=== PATIENT | male | born 1990 | race Caucasian/White ===

== ENCOUNTER 2017-05-18 11:30 | Emergency (ER) | payer SELFPAY ==
[2017-05-18] MEDS ORDERED: Bupivacaine 0.25% MDV* 50 ML VIAL ONE (11:45)
[2017-05-18 12:13] LABS: Hematocrit 43 % (42-52); Hemoglobin 14.4 g/dl (14.0-18.0); Mean Corpuscular HGB Conc 33 g/dl (31-36); Mean Corpuscular Hemoglobin 32 pg (27-31); Mean Corpuscular Volume 95 fL (80-94); Mean Platelet Volume 8 um3 (7.4-10.4); Red Blood Count 4.55 10^6/ul (4.0-5.4); Red Cell Distribution Width 13 % (10.5-15); White Blood Count 5.7 10^3/ul (3.5-10.8)
[2017-05-18 12:27] LABS: Albumin 4.9 g/dL (3.2-5.2); BUN/Creatinine Ratio 12.4 (8-20); EGFR African American 121.3 (>60); EGFR Non-African American 94.3 (>60); Globulin 2.8 g/dL (2-4); Potassium 3.9 mmol/L (3.5-5.0); Total Bilirubin 0.9 mg/dL (0.2-1.0); Total Protein 7.7 g/dL (6.4-8.9)
--- NOTE | 2017-05-18 13:12 | RAD ---
HISTORY: Left second digit trauma COMPARISONS: None VIEWS: 3, Frontal, lateral, and oblique views of the second digit of the left hand FINDINGS: BONE DENSITY: Normal. BONES: There is a 0.3 x 1 cm defect of the head of the proximal phalanx of the second digit with articular extension. JOINTS: There is no arthropathy. ALIGNMENT: There is no dislocation. SOFT TISSUES: There is soft tissue regularly consistent with history of trauma OTHER FINDINGS: None. IMPRESSION: OSSEOUS DEFECT OF THE HEAD OF THE PROXIMAL PHALANX OF THE SECOND DIGIT CONSISTENT WITH THE HISTORY OF PENETRATING TRAUMA
[2017-05-18 14:40] VITALS: BP 127/75
--- NOTE | 2017-05-18 16:35 | ED ---
Neri Rubin Nikita, scribed for Renny Pyle MD on 05/18/17 at 1140 . Laceration/Wound HPI - HPI Summary HPI Summary: Pt is a 26 y/o M who presents to ED c/o L index laceration. At approximately 1120 this morning, he cut the finger with a table saw. Reports he is unable to move the index finger, but can move all of the others. Applied a towel [employer]. Associated pain is severe, ranked 10/10. Sx aggravated and alleviated by nothing. Confirms his last tetanus shot was less than 5 years ago. - History of Current Complaint Stated Complaint: FINGER LAC Time Seen by Provider: 05/18/17 11:34 Hx Obtained From: Patient Mechanism of Injury: Sharp/Blunt Trauma - Table saw Aggravating: Nothing Alleviating: Nothing Current Severity: Severe Pain Intensity: 10 Pain Scale Used: 0-10 Numeric Associated Signs & Symptoms: Negative - Allergy/Home Medications Allergies/Adverse Reactions: Allergies Allergy/AdvReac Type Severity Reaction Status Date / Time No Known Allergies Allergy Verified 05/18/17 11:31 PMH/Surg Hx/FS Hx/Imm Hx Previously Healthy: Yes Endocrine/Hematology History: Denies: Hx Diabetes Cardiovascular History: Denies: Hx Coronary Artery Disease, Hx Hypertension Infectious Disease History: No Infectious Disease History: Denies: Traveled Outside the [place] in Last 30 Days - Family History Known Family History: Positive: Hypertension - Grandmother - Social History Alcohol Use: None Substance Use Type: Reports: None Smoking Status (MU): Never Smoked Tobacco Review of Systems Negative: Fever Positive: Other - L index finger laceration All Other Systems Reviewed And Are Negative: Yes Physical Exam Triage Information Reviewed: Yes Vital Signs On Initial Exam: Initial Vitals Temp Pulse Resp BP Pulse Ox 96 F 81 16 130/70 100 05/18/17 11:31 05/18/17 11:31 05/18/17 11:31 05/18/17 11:31 05/18/17 11:31 Vital Signs Reviewed: Yes Appearance: Positive: Well-Appearing, No Pain Distress Skin: Positive: Warm, Skin Color Reflects Adequate Perfusion, Dry Head/Face: Positive: Normal Head/Face Inspection Eyes: Positive: Normal ENT: Positive: Normal ENT inspection Neck: Positive: Supple, Nontender Respiratory/Lung Sounds: Positive: Clear to Auscultation, Breath Sounds Present Cardiovascular: Positive: RRR Abdomen Description: Positive: Nontender, Soft Bowel Sounds: Positive: Present Musculoskeletal: Positive: Other - Index finger has a laceration on the dorsum of the PIP, into the joint Psychiatric: Positive: Normal Diagnostics - Vital Signs Vital Signs Temp Pulse Resp BP Pulse Ox 05/18/17 11:31 96 F 81 16 130/70 100 - Laboratory Lab Results: Lab Results 05/18/17 05/18/17 Range/Units 12:02 12:02 WBC 5.7 (3.5-10.8) 10^3/ul RBC 4.55 (4.0-5.4) 10^6/ul Hgb 14.4 (14.0-18.0) g/dl Hct 43 (42-52) % MCV 95 H (80-94) fL MCH 32 H (27-31) pg MCHC 33 (31-36) g/dl RDW 13 (10.5-15) % Plt Count 281 (150-450) 10^3/ul MPV 8 (7.4-10.4) um3 Neut % (Auto) 52.8 (38-83) % Lymph % (Auto) 33.5 (25-47) % [place] % (Auto) 11.2 H (1-9) % Eos % (Auto) 0.9 (0-6) % Baso % (Auto) 1.6 (0-2) % Absolute Neuts (auto) 3.0 (1.5-7.7) 10^3/ul Absolute Lymphs (auto) 1.9 (1.0-4.8) 10^3/ul Absolute Monos (auto) 0.6 (0-0.8) 10^3/ul Absolute Eos (auto) 0 (0-0.6) 10^3/ul Absolute Basos (auto) 0.1 (0-0.2) 10^3/ul Absolute Nucleated RBC 0 10^3/ul Nucleated RBC % 0.1 Sodium 135 (133-145) mmol/L Potassium 3.9 (3.5-5.0) mmol/L Chloride 104 (101-111) mmol/L Carbon Dioxide 24 (22-32) mmol/L Anion Gap 7 (2-11) mmol/L BUN 12 (6-24) mg/dL Creatinine 0.97 (0.67-1.17) mg/dL Est GFR ( Amer) 121.3 (>60) Est GFR (Non-Af Amer) 94.3 (>60) BUN/Creatinine Ratio 12.4 (8-20) Glucose 124 H (70-100) mg/dL Calcium 10.0 (8.6-10.3) mg/dL Total Bilirubin 0.90 (0.2-1.0) mg/dL AST 25 (13-39) U/L ALT 50 (7-52) U/L Alkaline Phosphatase 67 (34-104) U/L Total Protein 7.7 (6.4-8.9) g/dL Albumin 4.9 (3.2-5.2) g/dL Globulin 2.8 (2-4) g/dL Albumin/Globulin Ratio 1.8 (1-3) Result Diagrams: 05/18/17 12:02 05/18/17 12:02 Lab Statement: Any lab studies that have been ordered have been reviewed, and results considered in the medical decision making process. - Radiology Finger XR Xray Interpretation: Positive (See Comments) - OSSEOUS DEFECT OF THE HEAD OF THE PROXIMAL PHALANX OF THE SECOND DIGIT CONSISTENT WITH THE HISTORY OF PENETRATING TRAUMA Radiology Interpretation Completed By: Radiologist Re-Evaluation - Re-Evaluation First Eval Re-Evaluation Time: 13:21 Comment: Pt confirms the index finger is numbed. Second Eval Re-Evaluation Time: 14:03 Comment: Discussed conversation with Dr. Tellez. Follow up immediately. Irrigated and loosely closed the wound. Laceration Repair Course/Dx - Course Course Of Treatment: Mr. Charles cut his right index finger on a table saw. He cut through the dorsum of the PIP and into the joint and proximal phalanx. He was anesthetized with 0.25% bupivicaine as a digital block and the wound was irrigated copiously (more than a liter, pulsatile under force), closed loosely and splinted in extension. Dr. Tellez was willing to see him in the office and he was sent there to make definative arangements. - Clinical Impression Provider Diagnoses: Open fracture of finger - Physician Notifications Discussed Care Of Patient With: Anthony Higgins Time Discussed With Above Provider: 13:05 Instructed by Provider To: Other - Recommended to clean out the wound and f/u in a week. Consulted with Dr. Tellez at 1336 who agreed with cleaning out of the wound and will see him this afternoon in his office. Discharge - Discharge Plan Condition: Stable Disposition: HOME Prescriptions: Amoxicillin/Clavulanate TAB* [Augmentin TAB 875*] 875 mg PO BID #20 tab HYDROcodone/ACETAMIN 5-325 MG* [[place] 5-325 TAB*] 1 tab PO Q6H PRN #20 tab MDD 4 PRN Reason: Pain Patient Education Materials: Finger Fracture (ED) Referrals: Keanu Tellez MD [Medical Doctor] - (Go immediately to Dr. Tellez office.) The documentation as recorded by the Neri hemphill Nikita accurately reflects the service I personally performed and the decisions made by , Renny Pyle MD.
== END 2017-05-18 14:39 | disposition home or self-care (01) ==
LOC: ED 11:30
DX: S62.600B Fracture of unspecified phalanx of right index finger, initial encounter for open fracture (principal); W29.8XXA Contact with other powered hand tools and household machinery, initial encounter; Y93.9 Activity, unspecified; Y92.89 Other specified places as the place of occurrence of the external cause
CPT/HCPCS: 36415; 73140; 80053; 85025; 99282; J2543

== ENCOUNTER 2017-05-31 12:17 | Day surgery (SDC) | payer OTHER ==
[~2017-05-31 12:17] MED LIST: Buffered Lidocaine 0.9% SYRIN* 5 ML/SYR SYRINGE INTRADERM ONE; Dexamethasone IV* 4 MG/ML 1 ML (4 MG) IV SLOW PU ONE; Famotidine IV* 10 MG/ML 2 ML (20 mg) IV ONE
[2017-05-31] MEDS ORDERED: Dexamethasone IV* 4 MG/ML 1 ML (4 MG) ONE (12:44)
[2017-05-31] MEDS ORDERED: ceFAZolin 2 GM PREMIX (*) 50 ML IVPB ONE (12:44)
[2017-05-31] MEDS ORDERED: Famotidine IV* 10 MG/ML 2 ML (20 mg) ONE (12:44)
[2017-05-31] MEDS ORDERED: Propofol* 10 MG/ML 20 ML BTL IV PUSH ONE (14:54)
[2017-05-31] MEDS ORDERED: Lidocaine 2% PF * 5 ML VIAL ONE (14:54)
[2017-05-31] MEDS ORDERED: Midazolam* 1 MG/ML 2 ML VIAL (2 MG) ONE (14:54)
[2017-05-31] MEDS ORDERED: fentaNYL* 50 MCG/ML 2 ML VIAL (100 MCG VIAL) ONE ×3 (14:54→18:51)
[2017-05-31] MEDS ORDERED: Bupivacaine 0.25% SDV* 30 ML ONE (15:01)
[2017-05-31] MEDS ORDERED: Ketorolac INJ* 30 MG/ML 1 ML VIAL ONE (17:09)
[2017-05-31] MEDS ORDERED: Metoprolol Tartrate IV* 1 MG/ML 5 ML VIAL ONE (17:45)
[2017-05-31] MEDS ORDERED: HYDROcodone/ACETAMIN 5-325 MG* 1 TAB PO PRN (18:34)
[2017-05-31] MEDS ORDERED: PROCHLORPERAZINE INJ 5 MG/ML 2 ML VIAL IV PRN (18:34)
[2017-05-31] MEDS ORDERED: Scopolamine 1.5 mg* PATCH TRANSDERM PRN (18:34)
[2017-05-31] MEDS ORDERED: oxyCODONE/Acetamin 5/325 MG* TAB PO PRN (18:34)
[2017-05-31] MEDS ORDERED: fentaNYL* 50 MCG/ML 2 ML VIAL (100 MCG VIAL) IV PRN (18:34)
[2017-05-31] MEDS ORDERED: Ondansetron INJ* 2 MG/ML VIAL ONE (18:35)
[2017-05-31] MEDS ORDERED: HYDROcodone/ACETAMIN 5-325 MG* 1 TAB ONE (20:18)
[2017-05-31 20:46] VITALS: BP 139/86
--- NOTE | 2017-06-01 07:27 | RAD ---
INDICATION: Left index finger wound exploration, irrigation and traumatic fracture reduction. COMPARISON: Comparison is made with a prior x-ray study of the left index finger from May 18, 2017. TECHNIQUE: 20 of intermittent fluoroscopic guidance were provided and 3 spot films of the left index finger were obtained in the operating room. FINDINGS: The fingers demonstrate a soft tissue defect adjacent to the distal aspect of the proximal phalanx. There has been placement of 3 surgical screws spanning the fracture of the distal aspect of the proximal phalanx. There is a defect in the distal phalanx from the patient's prior trauma. IMPRESSION: INTRAOPERATIVE CONTROL FILMS. CPT II Codes: 6045F
--- NOTE | 2017-06-01 07:57 | OP ---
DATE OF OPERATION: 05/31/17 [facility] DATE OF : 89 SURGEON: Keanu Tellez MD STOKER MECHANIC: EUSEBIO Torres. An assistant professor of english was needed for the entirety of the procedure to assist with positioning of the hand and retraction. ANESTHESIOLOGIST: Dr. Junie Arthur. ANESTHESIA: General. PRE-OP DIAGNOSES: Left index finger table saw proximal interphalangeal joint injury with significant articular defect and open proximal phalanx fracture with extensor tendon injury and possible radial digital nerve injury. POST-OP DIAGNOSES: 1. Left index finger table saw proximal interphalangeal joint injury with open proximal phalanx intraarticular fracture and significant dorsal articular surface defect. 2. Complete extensor mechanism laceration, operative zone 3 to 4. OPERATIVE PROCEDURES: 1. Exploration of left index finger penetrating wound. 2. Irrigation and debridement of open intra-articular proximal phalanx fracture. Irrigation of skin, subcutaneous tissue, tendon and bone. 3. Osteochondral autograft transfer from the dorsal aspect of the hamate to the proximal phalanx condyles. 4. Repair of extensor tendon, left index finger. INDICATIONS: Alejandro had a severe table saw injury almost a couple of weeks ago. His worker's compensation took a while to get everything to be able to go through. He has been on antibiotics. The fingers had been immobilized. We talked about doing fusion versus attempted reconstruction of the joint. I told them that although on my clinical exam, the radial collateral ligament seems reasonably stable, there is a chance that he would have persistent radial collateral ligament instability with reconstruction, which could affect the use of the finger. I talked to him about the risks of stiffness and persistent pain , pain at the donor site or instability at the donor site. He understood all these. He wished to proceed with the reconstruction. He understands that he may need a fusion in the future or require additional surgery on the finger. I had also talked about possible radial digital nerve injury as he had a little bit paresthesias on the radial aspect of the index finger tip. I do not think that I was lacerated, but I told him I would explore it and repair that as needed with potential nerve autograft. He understood all these. He wished to proceed. ESTIMATED BLOOD LOSS: 20 mL. COMPLICATIONS: None. FINDINGS: Significant articular defect and suspected the laceration to the tendon involved most central slip and the lateral band to just few millimeters proximal to the insertion on to the base of the middle phalanx of the central slip. There was enough tendon to sew to. The radial digital nerve was indeed intact and the most volar fibers of the radial collateral ligament were intact. The dorsal and lateral recess was all gone involved during the injury. DESCRIPTION OF PROCEDURE: Alejandro was seen in the preoperative holding area. The correct side, site, and procedure were identified. We came back to the operating room. The arm was prepped and draped in the usual fashion. Formal time-out was performed. I begun by exsanguinating the arm with the Esmarch and the tourniquet was inflated to 250 mmHg. I then removed the sutures and reopened the skin incision using a knife and the scissors. I cleaned up the skin margins with the Metzenbaum scissors. I cleaned the edge of the tendon laceration with a knife and then with scissors back to healthy edges. I then irrigated and debrided the open fracture, as there was quite a bit of fracture hematoma that developed in the base where the . Portion out of the bone. This was all cleaned out and some bone fragments came out with the irrigation. There was blue foreign material in the cancellous bone. I think this fell off the microcurette. Once I had gotten everything nice and clean, I irrigated out the joint, got it nice and clean. I measured my defect. It was 11 mm x 5 mm high, 5 x 9 mm deep into the bone. I then turned my attention to obtaining my osteochondral autograft. I made a curvilinear incision centered over the fourth and fifth CMC joints. Dissection was carried down. I preserved the traversing sensory nerve, a couple of dorsal veins were tied off. I then opened the fourth and fifth CMC joints in the interval between the fifth dorsal compartment tendon and fourth dorsal compartment tendons. Subperiosteal and capsular flaps were raised to expose the joint. I then marked off the size of my graft. I went ahead and used a sagittal saw to cut the radial, ulnar and proximal margins of the graft. I then used the sagittal saw to remove the most dorsal part of the fourth and fifth metacarpal bases to enable me to get a curved osteotome in place to complete the graft harvest. Once I had released the graft with the curved osteotome, I handed this off on to the back table with moist gauze. The wound there was then irrigated out and put little bone wax on the cancellous bone. I checked the stability in the fourth and fifth CMC joints. They are completely stable, I could not get them subluxate or dislocate. The wrist was moving nicely. I therefore irrigated out that wound. The periosteal and capsular layers were closed with 4-0 Polysorb suture. The skin was closed with 4-0 nylon suture. Attention was then turned against the finger where the osteochondral autograft was divided in two along the apex of the V. I then used one piece to reconstruct the radial condyle. The graft was contoured until I had a nice fit and I held this in place with one 0.6 mm K-wire. I then secured the radial piece of graft by attaching one 1.3 mm screw from the Repairogen variable angle handset through the dorsal cortex and then through the graft and out the volar cortex. This was done in lag type fashion and secured it very nicely. I then took my other piece of autograft and contoured this to recreate the ulnar condyle. Once I had this in place and secured with 0.6 mm K-wire, it was secured with 0.3 mm screw followed by . The graft was now very securely held. I went ahead and used the sagittal saw to clean up the radial and ulnar borders, so as to contour and size a little bit. Once I had everything looking very nice, I went ahead and irrigated out copiously. The dorsal soft tissue between the tendon and the bone was pulled over the screws and sewed down with some 5-0 PDS suture. The extensor tendon was able to be apposed and so I went ahead and repaired this with multiple 4-0 PDS figure-of- eight sutures. The tendon did appose very nicely. The repair is very nice. I went ahead then and irrigated out the wound again and closed the skin with 5-0 nylon sutures. Please note that during my initial dissection and irrigation portion of the procedure, I had explored the radial digital nerve. This was visualized correctly. The digital artery appeared intact and just volar to that the digital nerve appeared intact. I did have to extend the radial aspect of the incision proximally along the mid axial line and then 1.5 cm to get excellent visualization of the nerve to be able to explore it in its entirety. Again, it was nicely intact. After all the incisions were closed up, the operative site was infiltrated with 0.25% plain Marcaine. The wounds were dressed with Xeroform, 4x4s, sterile Webril, and a volar plaster splint was applied holding the MP joint in 60 degrees of flexion and the IP joint in full extension. Tourniquet was deflated. The hand pinked up immediately. Total tourniquet time consisted over couple of hours. Alejandro was then woken up and taken to the recovery room in stable condition. [id number]/CPS #: [id number] MTDD
[2017-06-03] MEDS ORDERED: Scopolomine PATCH Remove* 1 NOTE MISC PATCH OFF ONE (18:34)
== END 2017-05-31 21:00 | disposition home or self-care (01) ==
LOC: OR 12:17
PROVIDERS: ATTEND Orthopaedic Surgery Hand Surgery
DX: S62.641B Nondisplaced fracture of proximal phalanx of left index finger, initial encounter for open fracture (principal); S66.321A Laceration of extensor muscle, fascia and tendon of left index finger at wrist and hand level, initial encounter; W31.2XXA Contact with powered woodworking and forming machines, initial encounter; Y92.89 Other specified places as the place of occurrence of the external cause; Y99.0 Civilian activity done for income or pay
CPT/HCPCS: 76001; A9270-GY; C1713; C1776; J0690; J1100; J1885; J2250; J2405; J2704; J3010